=== PATIENT | male | born 1965 | race Two or more races ===

== ENCOUNTER 2017-12-25 16:30 | Emergency (ER) | payer OTHER ==
[~2017-12-25] VITALS: Ht 167.6 cm; Wt 99.8 kg
[~2017-12-25 16:30] MED LIST: AMOX1TAB12 PO; DILT-XR120 MG; DOCUSATE; GLIPIZIDE10 MG; IBUPROFEN800 MG PO; METFORMIN HCL500 MG; NOVOLIN N100 UNIT/1; PRAVASTATIN SOD10 MG; PROTONIX40 M1
[2017-12-25] MEDS ORDERED: PROTONIX40 M1 PO (16:51)
[2017-12-25] MEDS ORDERED: DILTIAZEM 24HR120 MG PO (16:52)
[2017-12-25] MEDS ORDERED: ADULT ASPIRIN81 MG PO (16:53)
[2017-12-25] MEDS ORDERED: FENOFIBRATE48 MG PO (16:53)
[2017-12-25] MEDS ORDERED: PRAVASTATIN SOD40 MG PO (16:54)
== END 2017-12-25 22:44 | disposition home or self-care (01) ==
LOC: ER 16:30
DX: K80.20 Calculus of gallbladder without cholecystitis without obstruction (principal)

== ENCOUNTER 2018-01-16 07:14 | Outpatient (CLI) | payer OTHER ==
[~2018-01-16 07:14] MED LIST changes: +ADULT ASPIRIN81 MG PO; +DILTIAZEM 24HR120 MG PO; +FENOFIBRATE48 MG PO; +PRAVASTATIN SOD40 MG PO; +PROTONIX40 M1 PO
== END 2018-01-16 07:24 | disposition home or self-care (01) ==
LOC: MRI 07:14
DX: K80.10 Calculus of gallbladder with chronic cholecystitis without obstruction (principal)
CPT/HCPCS: 74181

== ENCOUNTER 2018-07-17 10:59 | Inpatient (IN) | payer OTHER ==
[~2018-07-17] VITALS: Ht 167.6 cm; Wt 99.8 kg
== END 2018-07-26 14:44 | DRG 417 ==
LOC: ER 10:59 → MEDI 17:46 → SEC-K 17:46 → MEDI 07-18 14:20
PROVIDERS: Surgery
PROC: BW40ZZZ Ultrasonography of Abdomen (ICD-10-PCS; 2018-07-17)
PROC: BF37ZZZ Magnetic Resonance Imaging (MRI) of Pancreas (ICD-10-PCS; 2018-07-18)
PROC: B246ZZZ Ultrasonography of Right and Left Heart (ICD-10-PCS; 2018-07-19)
PROC: 0DNU4ZZ Release Omentum, Percutaneous Endoscopic Approach (ICD-10-PCS; 2018-07-22)
PROC: 0FT44ZZ Resection of Gallbladder, Percutaneous Endoscopic Approach (ICD-10-PCS; principal; 2018-07-22 12:30)
DX: K80.00 Calculus of gallbladder with acute cholecystitis without obstruction (principal); K85.80 Other acute pancreatitis without necrosis or infection; K66.0 Peritoneal adhesions (postprocedural) (postinfection); K76.0 Fatty (change of) liver, not elsewhere classified; I10 Essential (primary) hypertension; E11.9 Type 2 diabetes mellitus without complications; E78.49 Other hyperlipidemia; Z79.4 Long term (current) use of insulin

== ENCOUNTER 2018-11-27 11:20 | Emergency (ER) | payer OTHER ==
[~2018-11-27] VITALS: Ht 167.6 cm; Wt 97.1 kg
== END 2018-11-27 19:00 | disposition home or self-care (01) ==
LOC: ER 11:20
DX: S00.83XA Contusion of other part of head, initial encounter (principal); W22.8XXA Striking against or struck by other objects, initial encounter; Y93.89 Activity, other specified; Y92.89 Other specified places as the place of occurrence of the external cause; Y99.8 Other external cause status

== ENCOUNTER 2019-09-04 03:44 | Emergency (ER) | payer OTHER ==
[~2019-09-04] VITALS: Ht 167.6 cm; Wt 99.8 kg
[2019-09-04] MEDS ORDERED: PROMETHAZINE-D473 M1 PO (07:35)
[2019-09-04] MEDS ORDERED: ZITHROMAX500 MG PO (07:35)
== END 2019-09-04 08:25 ==
LOC: ER 03:44
DX: J06.9 Acute upper respiratory infection, unspecified (principal)

== ENCOUNTER 2019-09-07 16:00 | Emergency (ER) | payer OTHER ==
[~2019-09-07] VITALS: Ht 167.6 cm; Wt 99.8 kg
[~2019-09-07 16:00] MED LIST changes: +PROMETHAZINE-D473 M1 PO; +ZITHROMAX500 MG PO
== END 2019-09-07 22:27 | disposition home or self-care (01) ==
LOC: ER 16:00
DX: J20.8 Acute bronchitis due to other specified organisms (principal)

== ENCOUNTER 2020-09-21 03:25 | Emergency (ER) | payer OTHER ==
[~2020-09-21] VITALS: Ht 167.6 cm; Wt 99.8 kg
[2020-09-21] MEDS ORDERED: DICLOFENAC POTA50 MG PO (03:39)
[2020-09-21] MEDS ORDERED: DICLOFENAC SOD100 GM TP (03:39)
[2020-09-21] MEDS ORDERED: ROBAXIN-750750 MG (03:40)
[2020-09-21] MEDS ORDERED: NOVOLIN 70100 UNIT/1 SUBCUTANEO (03:40)
[2020-09-21] MEDS ORDERED: LIDOCAINE1 EACH TP (03:40)
[2020-09-21] MEDS ORDERED: MELOXICAM15 MG PO (03:40)
== END 2020-09-21 09:37 | disposition home or self-care (01) ==
LOC: ER 03:25
DX: M25.552 Pain in left hip (principal)